=== PATIENT | female | born 1990 | race Caucasian/White ===

== ENCOUNTER 2020-03-30 13:03 | Emergency (ER) | payer MEDICAID ==
[~2020-03-30] VITALS: Ht 160 cm; Wt 63.5 kg
--- NOTE | 2020-03-30 14:10 | NUR ---
PT WAS EVALUATED BY DR PAINTER.
[2020-03-30 16:29] VITALS: BP 132/71
--- NOTE | 2020-03-30 16:29 | NUR ---
PT WAS D/C'd TO HOME. D/C INSTRUCTIONS GIVEN TO THE PT BY DR PAINTER.
== END 2020-03-30 16:30 | disposition home or self-care (01) ==
LOC: ER 13:03
DX: S92.352A Displaced fracture of fifth metatarsal bone, left foot, initial encounter for closed fracture (principal); W18.40XA Slipping, tripping and stumbling without falling, unspecified, initial encounter; Y92.89 Other specified places as the place of occurrence of the external cause; Z88.2 Allergy status to sulfonamides
CPT/HCPCS: 73630; A4663